=== PATIENT | female | born 1950 | race Caucasian/White ===

== ENCOUNTER → 2018-02-02 | Outpatient (CLI) | payer OTHER ==
[~2018-02-02] MED LIST: ACETAMINOPHEN-1 EAC1 PO; ZOCOR5 MG PO
== END ==
LOC: M.ULTRA 09:13
DX: N64.4 Mastodynia (principal); R92.8 Other abnormal and inconclusive findings on diagnostic imaging of breast

== ENCOUNTER 2019-04-26 19:35 | Emergency (ER) | payer OTHER ==
[~2019-04-26] VITALS: Ht 157.5 cm; Wt 49.0 kg
[2019-04-26] MEDS ORDERED: DOXYCYCLINE 10100 MG (19:51)
[2019-04-26 20:11] LABS: URINE BILIRUBIN NEGATIVE (Negative); URINE BLOOD TRACE (Negative); URINE CLARITY CLEAR; URINE COLOR YELLOW; URINE GLUCOSE-RANDOM NEGATIVE (Negative); URINE KETONES NEGATIVE (Negative); URINE LEUKOCYTES-REFLEX NEGATIVE (Negative); URINE NITRITE-REFLEX NEGATIVE (Negative); URINE PROTEIN NEGATIVE (Negative); URINE SPECIFIC GRAVITY 1.025 (1.005-1.030); URINE UROBILINOGEN 0.2 E.U./dl (0.2-1.0)
[2019-04-26] MEDS ORDERED: ZOFRAN ODT4 MG PO (21:05)
[2019-04-26] MEDS ORDERED: MOTION RELIEF25 MG PO (21:05)
[2019-04-26 21:40] VITALS: BP 107/72
== END 2019-04-26 21:45 | disposition home or self-care (01) ==
LOC: M.ERS 19:35
PROVIDERS: Emergency Medicine
DX: R42 Dizziness and giddiness (principal); Z87.891 Personal history of nicotine dependence; Z88.0 Allergy status to penicillin

== ENCOUNTER → 2020-03-27 | Outpatient (CLI) | payer MEDICARE ==
[~2020-03-27] MED LIST changes: +DOXYCYCLINE 10100 MG; +MOTION RELIEF25 MG PO; +ZOFRAN ODT4 MG PO
== END ==
LOC: M.LAB 03-21 12:54
PROVIDERS: ATTEND Internal Medicine Gastroenterology
DX: Z01.812 Encounter for preprocedural laboratory examination (principal); R10.9 Unspecified abdominal pain

== ENCOUNTER 2020-10-23 15:00 | Emergency (ER) | payer MEDICARE ==
[~2020-10-23] VITALS: Ht 149.9 cm; Wt 49.9 kg
[2020-10-23 15:29] LABS: URINE BILIRUBIN NEGATIVE (Negative); URINE BLOOD TRACE (Negative); URINE CLARITY CLEAR; URINE COLOR YELLOW; URINE GLUCOSE-RANDOM NEGATIVE (Negative); URINE KETONES NEGATIVE (Negative); URINE LEUKOCYTES-REFLEX NEGATIVE (Negative); URINE NITRITE-REFLEX NEGATIVE (Negative); URINE PROTEIN NEGATIVE (Negative); URINE SPECIFIC GRAVITY >= 1.030 (1.005-1.030); URINE UROBILINOGEN 0.2 E.U./dl (0.2-1.0)
[2020-10-23 15:38] LABS: ABSOLUTE BASOPHILS 0.1 thou/uL (0.0-0.2); ABSOLUTE EOSINOPHILS 0.2 thou/uL (0.0-0.7); ABSOLUTE LYMPHOCYTES 1.6 thou/uL (0.8-5.3); ABSOLUTE MONOCYTES 0.5 thou/uL (0.0-1.2); ABSOLUTE NEUTROPHILS 2.8 thou/uL (1.6-8.1); BASOPHILS 1.4 %; EOSINOPHILS 3.1 %; HEMATOCRIT 42.2 % (37.0-47.0); HEMOGLOBIN 14.1 gm/dL (12.0-15.0); LYMPHOCYTES 31.2 %; MCH 30.4 pg (26.0-34.0); MCHC 33.4 g/dL (28.0-37.0); MCV 90.9 fL (80.0-100.0); MPV 7.9 fl. (7.2-11.1); NUCLEATED RBCS 0 /100WBC; PLATELET COUNT* 216 thou/uL (150-400); POLYS 55.3 %; RBC 4.65 mil/uL (4.20-5.00); RDW-CV 14.7 % (10.5-14.5); WBC 5.1 thou/uL (4.0-11.0)
[2020-10-23 15:47] LABS: CALCIUM 9.2 mg/dL (8.5-10.1)
[2020-10-23 15:52] LABS: ALBUMIN 3.7 g/dL (3.4-5.0); TOTAL BILIRUBIN 0.5 mg/dL (<0.1-1.0); TOTAL PROTEIN 7.2 g/dL (6.4-8.2)
[2020-10-23] MEDS ORDERED: ZOFRAN ODT4 MG PO (17:37)
[2020-10-23] MEDS ORDERED: BENTYL 20 MG TA20 M1 PO (17:37)
[2020-10-23 17:53] VITALS: BP 113/76
--- NOTE | 2020-10-24 12:07 | EKG ---
[place] [address] ELECTROCARDIOGRAM REPORT Name: YOVANY MORENO Room: [facility]#: [id number] Admission: 10/23/20 Attend Phys: Discharge: 10/23/20 Date of : 46 Date of Service: 10/23/20 1540 Report #: [id number] THIS REPORT FOR: //name// [facility] ED Test Date: 2020-10-23 Test Time: 15:40:14 Pat Name: YOVANY MORENO Department: Room: Gender: Survey Supervisor: [facility] : 1950 Requested By: Anila Berger Order Number: [id number] MD: Samuel Haque Measurements Intervals [place] Rate: 77 P: 62 MI: 147 QRS: 42 QRSD: 88 T: 48 QT: 375 QTc: 425 Interpretive Statements Sinus rhythm Compared to ECG 06/22/2013 12:18:49 No significant changes Electronically Signed On 10-24-2020 12:07:16 [employer] by Samuel Haque [email or web address] <ELECTRONICALLY SIGNED> By: Samuel Haque MD, [facility] 10/24/20 1207 1540 154 Samuel Haque MD, FACC /EPI
== END 2020-10-23 17:54 | disposition home or self-care (01) ==
LOC: M.ERS 15:00
PROVIDERS: Nurse Practitioner Family
DX: N28.1 Cyst of kidney, acquired (principal); R25.1 Tremor, unspecified; Z88.0 Allergy status to penicillin; Z87.891 Personal history of nicotine dependence

== ENCOUNTER 2020-11-21 16:18 | Emergency (ER) | payer OTHER ==
[~2020-11-21] VITALS: Ht 154.9 cm; Wt 50.4 kg
[~2020-11-21 16:18] MED LIST changes: +BENTYL 20 MG TA20 M1 PO
[2020-11-21] MEDS ORDERED: SIMVASTATIN80 MG PO (16:30)
[2020-11-21 17:00] LABS: ABSOLUTE BASOPHILS 0.1 thou/uL (0.0-0.2); ABSOLUTE EOSINOPHILS 0.1 thou/uL (0.0-0.7); ABSOLUTE LYMPHOCYTES 1.7 thou/uL (0.8-5.3); ABSOLUTE MONOCYTES 0.4 thou/uL (0.0-1.2); ABSOLUTE NEUTROPHILS 2.6 thou/uL (1.6-8.1); EOSINOPHILS 2.9 %; HEMATOCRIT 41.5 % (37.0-47.0); HEMOGLOBIN 13.6 gm/dL (12.0-15.0); LYMPHOCYTES 33.9 %; MCH 30.1 pg (26.0-34.0); MCHC 32.7 g/dL (28.0-37.0); MONOCYTES 8.6 %; MPV 8.2 fl. (7.2-11.1); NUCLEATED RBCS 0 /100WBC; PLATELET COUNT* 222 thou/uL (150-400); POLYS 53.6 %; RBC 4.51 mil/uL (4.20-5.00); RDW-CV 14.5 % (10.5-14.5); WBC 4.9 thou/uL (4.0-11.0)
[2020-11-21 17:06] LABS: CALCIUM 8.4 mg/dL (8.5-10.1); POTASSIUM 4.2 mmol/L (3.5-5.1)
[2020-11-21 17:11] LABS: ALBUMIN 3.4 g/dL (3.4-5.0); TOTAL BILIRUBIN 0.2 mg/dL (<0.1-1.0); TOTAL PROTEIN 6.5 g/dL (6.4-8.2)
[2020-11-21] MEDS ORDERED: BUTALB-APAP-CA1 EACH PO (17:21)
[2020-11-21 17:36] LABS: URINE BILIRUBIN NEGATIVE (Negative); URINE BLOOD TRACE (Negative); URINE CLARITY CLEAR; URINE COLOR YELLOW; URINE GLUCOSE-RANDOM NEGATIVE (Negative); URINE KETONES NEGATIVE (Negative); URINE LEUKOCYTES-REFLEX NEGATIVE (Negative); URINE NITRITE-REFLEX NEGATIVE (Negative); URINE PROTEIN NEGATIVE (Negative)
[2020-11-21 17:55] VITALS: BP 118/70
== END 2020-11-21 17:59 | disposition home or self-care (01) ==
LOC: M.ERS 16:18
PROVIDERS: Nurse Practitioner Psychiatric/Mental Health
DX: G44.209 Tension-type headache, unspecified, not intractable (principal); Z79.899 Other long term (current) drug therapy; Z87.891 Personal history of nicotine dependence; Z88.0 Allergy status to penicillin

== ENCOUNTER → 2021-11-30 | Outpatient (CLI) | payer OTHER ==
[~2021-11-30] MED LIST changes: +BUTALB-APAP-CA1 EACH PO; +SIMVASTATIN80 MG PO
== END ==
LOC: M.LAB 14:44
PROVIDERS: ATTEND Podiatrist Foot & Ankle Surgery
DX: Z01.812 Encounter for preprocedural laboratory examination (principal); Z20.822 Contact with and (suspected) exposure to COVID-19